=== PATIENT | male | born 1950 | race Caucasian/White ===

== ENCOUNTER → 2018-04-14 10:42 | Outpatient (CLI) | payer MEDICARE, OTHER, SELFPAY ==
--- NOTE | 2018-04-14 | DI.ECHO.S_ITS ---
[facility] +---------+ : : [address] : [address] : : : : [id number] : : : : Phone: [phone]+ Echocardiogram Report + + :Name: DONNELL DELGADO Study Date: 04/14/2018 Height: 70 in : :[facility] Exam Location: IS Weight: 255 lb : : Gender: Male BSA: 2.3 m2 : :: 1950 Age: 67 yrs BP: 118/70 mmHg: :Reason For Study: S/P AVR : :Ordering Physician: Davion : :Rebeka Gayle Performed By: Naya Medina : :Referring: Davion Staley M.D. : + + Interpretation Summary The ejection fraction is estimated to be 60-65%. Septal motion is consistent with post-operative state. The right ventricle is mildly dilated. Right ventricular systolic function is mildly reduced. There is mild mitral regurgitation. There is a bioprosthetic aortic valve. The prosthetic aortic valve function is normal. Procedure: A two-dimensional transthoracic echocardiogram with color flow and Doppler was performed. The study quality was technically adequate. Comparison is made with the echocardiogram of 11/20/2017. The patient was in normal sinus rhythm during the exam. Left Ventricle: The left ventricle is normal in size. Left ventricular wall thickness is normal. The ejection fraction is estimated to be 60-65%. Septal motion is consistent with post-operative state. Right Ventricle: The right ventricle is mildly dilated. Right ventricular systolic function is mildly reduced. Atria: Both atria are normal in size. The interatrial septum is intact with no evidence for an atrial septal defect. Mitral Valve: The mitral valve leaflets appear mildly thickened, but open well. There is mild mitral annular calcification. There is mild mitral regurgitation. Aortic Valve: There is a bioprosthetic aortic valve. The prosthetic aortic valve function is normal. The peak aortic velocity is 2.3 m/sec. The aortic valve mean gradient is 12 mmHg. No aortic regurgitation is present. Tricuspid Valve: The tricuspid valve is normal in structure and function. There is a trace or physiologic amount of tricuspid regurgitation. Pulmonary artery pressures cannot be estimated because of the lack of a measurable TR jet velocity. Pulmonic Valve: The pulmonic valve is not well seen, but is grossly normal. There is a trace or physiologic amount of pulmonic regurgitation. Great Vessels: The ascending aorta is at the upper limits of normal in size. The aortic arch could not be visualized. The IVC is of normal diameter and collapses greater than 50% with a sniff. This suggests a low right atrial pressure of 3 mm Hg. Pericardium/ Pleura There is an anterior echo-free space consistent with a fat pad. There is no pericardial effusion. There is no pleural effusion. MMode/2D Measurements & Calculations LVIDd: 5.3 cm LVOT diam: 2.2 cm LVIDs: 3.1 cm asc Aorta Diam: 3.7 cm FS: 40.9 % IVSd: 0.95 cm LVPWd: 0.93 cm LV bennett. diameter/BSA (cm/m^2): 2.3 LV sys. diameter/BSA (cm/m^2): 1.3 LA A2 area: 26.2 cm2 RA long axis: 4.9 cm LA A4 area: 18.8 cm2 RA area: 17.0 cm2 LA length (vol): 5.5 cm RA vol: 50.0 ml LA vol: 76.0 ml RA : 21.6 ml/m2 LA vol index: 32.8 ml/m2 RVD1 (basal): 5.4 cm TAPSE: 1.5 cm Doppler Measurements & Calculations Ao V2 max: 233.3 cm/sec LVOT Max Mynor: 111.1 cm/sec Ao V2 mean: 163.8 cm/sec LV V1 max P.9 mmHg Ao max P.8 mmHg LV V1 VTI: 19.8 cm Ao mean P.2 mmHg EVELIN(I,D): 2.0 cm2 Ao V2 VTI: 39.0 cm EVELIN(V,D): 1.8 cm2 sev ratio: 0.51 EVELIN indexed to BSA (cm^2/m^2): 0.84 MV E max mynor: 83.8 cm/sec PA V2 max: 117.2 cm/sec MV A max mynor: 117.6 cm/sec PA V2 mean: 76.6 cm/sec MV E/A: 0.71 PA mean P.7 mmHg MV dec time: 0.16 sec PA pr(Accel): 14.1 mmHg Reading Physician:01:[id number] PM
== END ==
PROVIDERS: Family Provider Family Medicine; PCP Family Medicine; Visit Provider Registered Nurse
DX: I34.0 Nonrheumatic mitral (valve) insufficiency (principal); Z95.2 Presence of prosthetic heart valve
CPT/HCPCS: 93306

== ENCOUNTER → 2018-04-30 12:45 | Outpatient (CLI) | payer MEDICARE, OTHER, SELFPAY | PROVIDERS: Family Provider Family Medicine; PCP Family Medicine; Visit Provider Family Medicine | DX: R20.0 Anesthesia of skin (principal) | CPT/HCPCS: 95886; 95910 ==

== ENCOUNTER 2018-05-20 11:30 | Outpatient (RCR) | payer MEDICARE, OTHER, SELFPAY ==
[2018-03-03 08:56] VITALS: BP 110/56; BP 112/60; O2SAT 98; BMI 35.4
[2018-04-01 14:34] VITALS: BP 108/60
[2018-04-30 08:14] VITALS: BP 102/54; RESP 18
[2018-05-20 13:24] VITALS: BP 110/60
[2018-05-20 15:48] VITALS: BMI 35.2
== END 2018-05-20 12:00 ==
LOC: CAR 11:30
PROVIDERS: Family Provider Family Medicine; PCP Family Medicine; Visit Provider Surgery
DX: Z95.2 Presence of prosthetic heart valve (principal)
CPT/HCPCS: 93798

== ENCOUNTER → 2019-11-30 13:38 | Outpatient (CLI) | payer MEDICARE, OTHER, SELFPAY ==
[2019-11-30 14:20] LABS: Add Manual Diff / Slide Review NO; Basophils Absolute Auto 200 /uL (0-100); Basophils Percent Auto 2.3 % (0-2); Eosinophils Absolute Auto 300 /uL (0-450); Eosinophils Percent Auto 3.5 % (2-4); Hematocrit 44.8 % (41-53); Hemoglobin 14.5 g/dL (13.5-17.5); Lymphocytes Absolute Auto 2000 /uL (1100-4500); Lymphocytes Percent Auto 26.4 % (25-40); Mean Corpuscular HGB Conc 32.5 % (30-36); Mean Corpuscular Hemoglobin 28.8 PG (26-34); Mean Corpuscular Volume 88.5 fL (80-100); Monocytes Absolute Auto 600 /uL (0-900); Monocytes Percent Auto 8.4 % (3-14); Neutrophils Absolute Auto 4500 /uL (1500-7000); Neutrophils Percent Auto 59.4 % (50-75); Platelet Count 235 X10^3/uL (150-400); Red Blood Cell Count 5.05 X10^6/uL (4.5-5.9); Red Cell Distribution Width 15.2 % (11.6-14.8); White Blood Cell Count 7.6 X10^3/uL (4.5-11.0)
[2019-11-30 14:29] LABS: Hemoglobin A1C% w Est Avg Glu 6.1 % (4.0-6.0)
[2019-11-30 14:41] LABS: Erythrocyte Sedimentation Rate 4 MM/HR (0-15)
[2019-11-30 14:50] LABS: Alanine Aminotransferase 49 IU/L (<50); Albumin 4.4 g/dL (3.5-5.0); Albumin Globulin Ratio 1.5 (1.0-2.8); Alkaline Phosphatase 90 U/L (38-126); Aspartate Aminotransferase 53 IU/L (17-59); BUN Creatinine Ratio 19.1 (6-22); Bilirubin Total 0.5 mg/dL (0.2-1.3); Blood Urea Nitrogen 22 mg/dL (9-20); Calcium 10.3 mg/dL (8.4-10.2); Carbon Dioxide 26 mmol/L (22-32); Chloride 100 mmol/L (98-107); Estimated Glomerular Filt Rate > 60.0 mL/min (>60); Globulin 2.9 g/dL (1.7-4.1); Glucose 128 mg/dL (80-110); HEMOLYSIS < 15 (0-50); Potassium 5.1 mmol/L (3.4-5.1); Sodium 134 mmol/L (137-145); Total Protein 7.3 g/dL (6.3-8.2)
[2019-11-30 14:52] LABS: C-Reactive Protein Quant < 0.5 mg/dL (<1.0)
== END ==
PROVIDERS: Family Provider Family Medicine; PCP Family Medicine; Referring Provider Internal Medicine Rheumatology; Visit Provider Internal Medicine Rheumatology
DX: R73.9 Hyperglycemia, unspecified (principal)
CPT/HCPCS: 36415; 80053; 83036; 85025; 85651; 86140

== ENCOUNTER → 2019-12-09 | Outpatient (CLI) | payer MEDICARE, OTHER, SELFPAY | PROVIDERS: Family Provider Family Medicine; PCP Student in an Organized Health Care Education/Training Program; Referring Provider Urology; Visit Provider Urology ==

== ENCOUNTER → 2020-02-14 14:33 | Outpatient (CLI) | payer MEDICARE, OTHER, SELFPAY ==
--- NOTE | 2020-02-14 | DI.US.S_ITS ---
PROCEDURE: US ABDOMEN LIMITED INDICATIONS: LEFT GROIN PAIN TECHNIQUE: Real-time focused scanning was performed of the inguinal region, with image documentation. COMPARISON: None. FINDINGS: No hernia or mass IMPRESSION: Source of left groin pain not identified. CT scanning follow-up may become necessary.. Dictated by: Joshua Donnelly M.D. on 02/14/2020 at 16:32 Approved by: Joshua Donnelly M.D. on 02/14/2020 at 16:33
== END ==
PROVIDERS: Family Provider Family Medicine; PCP Student in an Organized Health Care Education/Training Program; Referring Provider Student in an Organized Health Care Education/Training Program; Visit Provider Student in an Organized Health Care Education/Training Program
DX: R10.32 Left lower quadrant pain (principal)
CPT/HCPCS: 76705

== ENCOUNTER → 2020-03-03 08:44 | Outpatient (CLI) | payer MEDICARE, OTHER, SELFPAY ==
--- NOTE | 2020-03-03 | DI.MRI.S_ITS ---
PROCEDURE: MR PELIS WO/W CON INDICATIONS: Elevated prostate specific antigen [PSA] TECHNIQUE: Coronal HASTE, axial T1 FSE with fat saturation, 3-plane nonbreath-hold T2 FSE. After the administration of contrast, dynamic axial, delayed axial and coronal VIBE or 2-D FLASH with fat saturation through the pelvis. Optional diffusion weighted imaging and ADC may be performed. COMPARISON: None. FINDINGS: Image quality: Diffusion weighted and dynamic contrast enhanced images are diagnostic. Prostate: Gland size is 4.8 cm AP, 5.8 cm transverse and 5.2 cm craniocaudad; ellipsoid gland volume is 72.3 mL morphologically the peripheral zone of the prostate is relatively prominent and the transitional zone is relatively small when compared to the general prostate MR imaging.. Lesion size(s): Lesion 1: 1.3 cm AP, 1.7 cm transverse, and 1.9 cm craniocaudad. This is well delineated on the T2 axial and sagittal imaging. Lesion location(s): Lesion 1: Located at the midline and right paramedian posterior peripheral zone. Lesion description: Lesion 1: This lesion is a wedge-shaped, sharply demarcated, and shows imaging characteristics suggestive of representing a single focus of peripheral zone prostate carcinoma. T2 weighted imaging (T2WI) morphology score: Lesion 1: No transitional zone focal lesion is found. There is a pattern within the transitional zone of circumscribed hypointense and heterogeneous in capsulated nodules consistent with benign prosthetic hypertrophy, with an appearance of PI-RADS category score 2. However, the peripheral zone lesion discussed above is greater than 1.5 cm in maximal dimension and shows no evidence of extraprostatic extension but has an elevated PI-RADS score of 5. Its posterior border abuts the anterior serosal surface of the rectum. Diffusion weighted imaging (DWI) morphology score: Lesion 1: This peripheral zone lesion shows hypointensity on ADC mapping, with a prominently hyperintense high B value diffusion-weighted imaging signal, and being larger than 1.5 cm in maximal dimension receives an elevated PI-RADS score of 5. Dynamic contrast enhancement (DCE): Lesion 1: Contrast enhancement of this lesion both in the early phase and subsequently shows discrete elevated contrast enhancement. The early phase enhancement is well seen on axial series 11, image 20, and also series 15, image 20 anterior to the enhancing central rectal mucosa. Lesion PI-RADS score: Lesion 1: PI-RADS overall score is elevated, PI-RADS 5, very high likelihood of presence of clinically significant prostate carcinoma in this patient. Genitourinary system: Bladder wall thickness is normal. Distal ureters are non distended. Bowel and peritoneum: No pathologic free pelvic fluid. Inferior colon and small bowel loops are normal in caliber. Nodes and vessels: No pelvic or inguinal adenopathy by size criteria. Iliac vessels are normal in caliber. Soft tissues: No inguinal hernias. Bones: Marrow demonstrates normal overall signal, without lesions to suggest metastases. IMPRESSION: Single identified lesion measuring up to 1.9 cm in maximal dimension, located within the posterior midline and contiguous right paramedian peripheral zone abutting and slightly distorting the anterior border of the adjacent rectum, showing imaging characteristics associated with a very high likelihood of presence of clinically significant prostate carcinoma. Adjacent or regional adenopathy is not seen, no osseous metastatic lesion appears associated. The peripheral zone is relatively prominent in this patient when compared to the transitional zone where imaging findings indicate presence of moderate BPH. Dictated by: Joshua Donnelly M.D. on 03/03/2020 at 15:42 Approved by: Joshua Donnelly M.D. on 03/03/2020 at 16:24
== END ==
PROVIDERS: Family Provider Family Medicine; PCP Student in an Organized Health Care Education/Training Program; Referring Provider Student in an Organized Health Care Education/Training Program; Visit Provider Urology
DX: R97.20 Elevated prostate specific antigen [PSA] (principal); N42.9 Disorder of prostate, unspecified
CPT/HCPCS: 72197; A9579

== ENCOUNTER → 2020-11-10 10:18 | Outpatient (CLI) | payer MEDICARE, OTHER, SELFPAY ==
[2020-11-10 12:22] LABS: Prostate Specific Antigen 1.07 ng/mL (0.10-4.00)
== END ==
PROVIDERS: PCP Student in an Organized Health Care Education/Training Program; Referring Provider Nurse Practitioner Family; Visit Provider Nurse Practitioner Family
DX: C61 Malignant neoplasm of prostate (principal)
CPT/HCPCS: 36415; 84153

== ENCOUNTER → 2020-11-29 11:41 | Outpatient (CLI) | payer MEDICARE, OTHER, SELFPAY ==
--- NOTE | 2020-11-29 | DI.MRI.S_ITS ---
PROCEDURE: MR PELIS WO/W CON INDICATIONS: Lumbosacral plexus disorders TECHNIQUE: Noncontrast axial and coronal T1 spin echo and STIR through the lumbosacral plexus region. Optional contrast may be given, followed by axial and coronal T1 spin echo with fat saturation through the sacral plexus. COMPARISON: [facility], , MR PELVIS WO/W CON, 03/03/2020, 9:06. FINDINGS: Image quality: Excellent. Lumbosacral plexus: Superior to the piriformis muscles, the pre-plexal structures appear normal, including the lumbosacral trunk and S1 root. Just anterior to the piriformis muscles, the sacral plexus proper demonstrates normal morphology (lumbosacral trunk, S1 to S3 nerve roots). Inferior to the piriformis muscles, the sciatic nerves appear normal. Soft tissues: The piriformis muscles appear symmetric in size. No presacral masses. Rectum appears normal in caliber and wall thickness. No pathologic free pelvic fluid. No visualized adenopathy by size criteria. Within the low aspect of the paraspinous musculature, deep layer, on the left there is mild asymmetric elevated fluid signal, and this is well seen on the axial STIR imaging on the left, centered on series 6, image 8. This is also present but less well visualized on the postcontrast axial T1 imaging through this same area, centered on series 11, image 7. No abscess is seen in this area. And the left-sided muscle involved is the longissimus thoracis (sacral component). Bones: Marrow is normal in overall signal. IMPRESSION: The sacral plexus within the pelvis shows no evidence of adjacent mass or inflammation. There is an isolated finding of inflammation involving the sacral component of the left paraspinous musculature as noted above, without internal evidence of abscess formation or adjacent osteomyelitis. Focal myositis is the likely cause for this appearance, but blunt asymmetric trauma could produce this appearance. No hematoma found. Dictated by: Joshua Donnelly M.D. on 11/29/2020 at 15:30 Approved by: Joshua Donnelly M.D. on 11/29/2020 at 15:44
== END ==
PROVIDERS: PCP Student in an Organized Health Care Education/Training Program; Referring Provider Psychiatry & Neurology Neurology; Visit Provider Psychiatry & Neurology Neurology
DX: G54.1 Lumbosacral plexus disorders (principal)
CPT/HCPCS: 72197

== ENCOUNTER → 2021-11-27 08:14 | Outpatient (CLI) | payer MEDICARE, OTHER, SELFPAY ==
[2021-11-27 10:27] LABS: Prostate Specific Antigen < 0.064 ng/mL (0.10-4.00)
== END ==
PROVIDERS: PCP Student in an Organized Health Care Education/Training Program; Referring Provider Radiology Radiation Oncology; Visit Provider Radiology Radiation Oncology
DX: C61 Malignant neoplasm of prostate (principal)
CPT/HCPCS: 36415; 84153

== ENCOUNTER → 2022-04-23 14:46 | Outpatient (CLI) | payer MEDICARE, OTHER, SELFPAY ==
--- NOTE | 2022-04-23 14:48 | DI.ECHO.S_ITS ---
[facility]---------+ [facility] +---------+ : : [address] : [address] : : : : [id number] : : : : Phone: [phone]+ Echocardiogram Report + + :Name: DONNELL DELGADO Study Date: 04/23/2022 Height: 71 in : :[facility] ReadingLocation: Weight: 260 lb : : Gender: Male BSA: 2.4 m2 : :: 1950 Age: 72 yrs BP: 146/86 mmHg: :Reason For Study: PROSTHETIC HEART VALVE : :Ordering Physician: WALDEMAR, : :LILIYA Performed By: Valentine Gage : :Referring: LILIYA STALEY : + + Interpretation Summary The ejection fraction is estimated to be 60-65%. There is a bioprosthetic aortic valve. There is probable normal prosthetic aortic valve function. The aortic valve mean gradient is 11 mmHg. Procedure: A two-dimensional transthoracic echocardiogram with color flow and Doppler was performed. The study quality was technically adequate. Comparison is made with the echocardiogram of 03/13/2020. The patient was in sinus rhythm with heart rates between 66-72 bpm during the exam. Left Ventricle: The left ventricle is normal in size and wall thickness. The ejection fraction is estimated to be 60-65%. Left ventricular wall motion is normal. Right Ventricle: The right ventricle is mildly dilated. The right ventricular systolic function is normal. Atria: The left atrium is mildly dilated. Right atrial size is normal. There is no Doppler evidence for an interatrial shunt. Mitral Valve: The mitral valve leaflets are slightly calcified. There is trace mitral regurgitation. Aortic Valve: There is a bioprosthetic aortic valve. There is probable normal prosthetic aortic valve function. The peak aortic velocity is 2.3 m/sec. The aortic valve mean gradient is 11 mmHg. No aortic regurgitation is present. Tricuspid Valve: The tricuspid valve is normal in structure and function. There is trace tricuspid regurgitation. Pulmonic Valve: The pulmonic valve is not well visualized. There is no pulmonic valvular regurgitation. Great Vessels: The dimensions of the ascending aorta are normal. The IVC is of normal diameter and collapses greater than 50% with a sniff. This suggests a low right atrial pressure of 3 mm Hg. Pericardium/ Pleura There is no pericardial effusion. There is no pleural effusion. MMode/2D Measurements & Calculations LVIDd: 4.3 cm LVOT diam: 2.4 cm LVIDs: 2.8 cm asc Aorta Diam: 3.5 cm FS: 35.1 % IVSd: 0.97 cm LVPWd: 0.91 cm LV bennett. diameter/BSA (cm/m^2): 1.8 LV sys. diameter/BSA (cm/m^2): 1.2 LA A2 area: 25.0 cm2 RA long axis: 5.2 cm LA A4 area: 24.3 cm2 RA area: 17.1 cm2 LA length (vol): 6.4 cm RA vol: 47.9 ml LA vol: 80.9 ml RA : 20.3 ml/m2 LA vol index: 34.3 ml/m2 IVC diam: 1.6 cm RVD1 (basal): 4.3 cm RVD2 (mid): 3.6 cm TAPSE: 1.9 cm Doppler Measurements & Calculations Ao V2 max: 232.1 cm/sec LVOT Max Mynor: 107.5 cm/sec Ao V2 mean: 150.7 cm/sec LV V1 max P.6 mmHg Ao max P.5 mmHg LV V1 VTI: 24.9 cm Ao mean P.5 mmHg EVELIN(I,D): 2.5 cm2 Ao V2 VTI: 45.1 cm EVELIN(V,D): 2.1 cm2 sev ratio: 0.55 EVELIN indexed to BSA (cm^2/m^2): 1.0 MV E max mynor: 113.7 cm/sec TR max mynor: 249.8 cm/sec MV A max mynor: 135.0 cm/sec TR max P.0 mmHg MV E/A: 0.84 PA pr(Accel): 20.8 mmHg Med Peak E' Mynor: 8.9 cm/sec E/E' med: 12.8 Lat Peak E' Mynor: 12.5 cm/sec E/E' lat: 9.1 E/e' average: 10.9 MV dec time: 0.29 sec MVA(VTI): 2.3 cm2 MV V2 mean: 86.1 cm/sec SV(LVOT): 111.5 ml MV mean P.5 mmHg MV V2 VTI: 48.8 cm Reading Physician:10:46 AM
== END ==
PROVIDERS: PCP Family Medicine; Referring Provider Internal Medicine Cardiovascular Disease; Visit Provider Internal Medicine Cardiovascular Disease
DX: Z09 Encounter for follow-up examination after completed treatment for conditions other than malignant neoplasm (principal); Z95.2 Presence of prosthetic heart valve
CPT/HCPCS: 93306

== ENCOUNTER → 2024-01-05 11:14 | Outpatient (CLI) | payer MEDICARE, OTHER, SELFPAY ==
[2024-01-05 13:07] LABS: Prostate Specific Antigen < 0.064 ng/mL (0.10-4.00)
== END ==
PROVIDERS: PCP Family Medicine; Referring Provider Radiology Radiation Oncology; Visit Provider Radiology Radiation Oncology
DX: C61 Malignant neoplasm of prostate (principal)
CPT/HCPCS: 36415; 84153